=== PATIENT | female | born 1965 | race Caucasian/White ===

== ENCOUNTER 2017-05-20 06:10 | Emergency (ER) | payer MEDICAID, OTHER ==
--- NOTE | 2017-05-20 06:36 | Emergency Department Record ---
History of Present Illness - General Chief Complaint: Headache Migraine Stated Complaint: HEADACHE Time Seen by Provider: 05/20/17 06:22 Source: Patient Mode of Arrival: Ambulatory Limitations: No limitations - History of Present Illness Initial Comments: The patient is here due to a headache that has been getting worse for a few hours. The patient has a long hx of chronic NUNEZ's similar to this one and has had a frontal NUNEZ for 5-6 days. She did see her PCP yesterday and did receive some medicine that almost completely took the NUNEZ away. Now for the last few hours the NUNEZ is returning. She describes a frontal throbbing NUNEZ which is gradually worsening and is associated with nausea, photophobia, and sound sensitivity. She denies any vomiting, weakness, numbness or balance issues. The patient states she has a long hx of these exact same NUNEZ's and she is usually able to take care of them at home but this one is lingering. Complaint: Headache Onset/Timin -: Hour(s) Onset Description: At rest Location: Frontal Severity scale (1-10): 10 Consistency: Constant Associated Symptoms: Nausea, Photophobia, Sensitivity to sound - Related Data Previous Rx's Medication Instructions Recorded Naproxen [Naprosyn] 250 mg PO BID #14 tablet 05/20/17 Allergies Allergy/AdvReac Type Severity Reaction Status Date / Time codeine AdvReac Mild NAUSEA Unverified 05/19/17 09:04 Travel Screening - Travel/Exposure Within Last 30 Days Have you traveled within the last 30 days?: No Review of Systems Constitutional: Denies: Chills, Fever Eyes: Denies: Eye discharge ENT: Denies: Congestion Respiratory: Denies: Cough, Dyspnea Past Medical History - SOCIAL HISTORY Smoking Status: Current every day smoker Alcohol Use: None Drug Use: None - RESPIRATORY Hx Respiratory Disorders: No - CARDIOVASCULAR Hx Cardio Disorders: Yes Hx Heart Attack: Yes - NEURO Hx Neuro Disorders: No - GI Hx GI Disorders: No - Hx Genitourinary Disorders: No - ENDOCRINE Hx Endocrine Disorders: Yes Hx Diabetes: Yes - MUSCULOSKELETAL Hx Musculoskeletal Disorders: No - PSYCH Hx Psych Problems: No - HEMATOLOGY/ONCOLOGY Hx Hematology/Oncology Disorders: No Family Medical History Any Significant Family History?: No Physical Exam - General General Appearance: Alert, Oriented x3, Cooperative, Mild distress (due to the NUNEZ.) - Head Head exam: Atraumatic, Normocephalic, Normal inspection (Palpation of the patient's fronal skull and denominational area bilaterally EXACTLY reproduces the patient's pain.) - Eye Eye exam: Normal appearance, PERRL, EOMI - ENT Throat exam: Normal inspection. negative: Tonsillar erythema, Tonsillar exudate - Neck Neck exam: Normal inspection, Full ROM. negative: Meningismus (The neck is very supple.), Tenderness - Respiratory Respiratory exam: Normal lung sounds bilaterally. negative: Respiratory distress - Cardiovascular Cardiovascular Exam: Regular rate - GI/Abdominal GI/Abdominal exam: Soft, Normal bowel sounds. negative: Tenderness - Extremities Extremities exam: Normal inspection, Full ROM, Normal capillary refill. negative: Tenderness - Neurological Neurological exam: Alert, Normal gait, Oriented X3, Reflexes normal, Other (Neg Drift and Rhomberg exams.). negative: Abnormal gait, Altered, Motor sensory deficit - Psychiatric Psychiatric exam: Anxious (mildly due to the NUNEZ.). negative: Agitated, Depressed - Skin Skin exam: negative: Rash Course Vital Signs 05/20/17 06:16 Temperature 98.4 F Pulse Rate [ 103 H Pulse Ox Probe] Respiratory 24 Rate Blood Pressure 164/91 [Right Arm] Pulse Ox 98 - Reevaluation(s) Reevaluation #1: The patient now is stating that she is having some mild SOB and her L arm is now aching. She denies any CP, or back pain and on exam her L arm pain is 100% reproducible with palpation from her shoulder to the elbow. We will obtain an EKG due to her hx of DM and tobacco use. 05/20/17 06:44 Reevaluation #2: The patient is feeling better at this time. Her NUNEZ is now 75% improved. She is now calm and denies any CP, SOB, sweating or nausea. She still has the VERY reproducible L arm pain. She is resting comfortably and is much improved. 05/20/17 07:10 Reevaluation #3: The patient is doing MUCH better at this time. Her pain is 95% resolved and she is smiling and joking in the room. She feels much better and would like to go home. I did discuss with her the neg head CT and the need for F/U. 05/20/17 07:59 05/20/17 08:09 Medical Decision Making - Data Complexity MDM Data: Labs Ordered and/or Reviewed, X-Ray Ordered and/or Reviewed, EKG Ordered and/or Reviewed - Lab Data Result diagrams: 05/20/17 06:35 05/20/17 06:35 - EKG Data -: EKG Interpreted by Me EKG: No Acute Changes, Unchanged From Previous - Radiology Data Radiology results: Report reviewed (Head CT: Neg.) Disposition Disposition: Discharge Clinical Impression: Headache Qualifiers: Headache type: unspecified Headache chronicity pattern: acute headache Intractability: not intractable Qualified Code(s): R51 - Headache Disposition: Home, Self-Care Condition: (1) Good Instructions: Acute Headache (ED) Additional Instructions: Please take the naprosyn for pain. Please see your PCP in 2 weeks as planned and return to the ER for any problems. Prescriptions: Naproxen [Naprosyn] 250 mg PO BID #14 tablet Forms: Patient Portal Access Time of Disposition: 08:11 Quality - Quality Measures Quality Measures: N/A - Blood Pressure Screening View Details: Yes Blood Pressure Classification: Hypertensive Reading Systolic Measurement: 140 Diastolic Measurement: 94 Screening for High Blood Pressure: < Pre-Hypertensive BP, F/U Documented > [ G8950] Pre-Hypertensive Follow-up Interventions: Follow-up with rescreen every year.
[2017-05-20 06:42] LABS: BASO % 0.1 % (0-6); EOS % 0.6 % (0-6); GRAN % 71.5 % (47-80); HEMATOCRIT 46.3 % (35.0-47.0); HEMOGLOBIN 16.2 gm/dl (11.6-16.0); LYMPH % 21.2 % (16-45); MEAN CELL VOLUME 89.4 fl (81-97); MEAN PLATELET VOLUME 9.3 fl (7.4-10.4); MONO % 6.6 % (0-9); PLATELET COUNT 314 K/uL (130-400); RED BLOOD COUNT 5.18 M/uL (3.80-5.40); RED CELL DISTRIBUTION WIDTH 14.4 % (11.5-14.5); WHITE BLOOD COUNT W/O DIFF 16.6 K/uL (4.2-12.2)
[2017-05-20 06:43] LABS: MEAN CORPUSCULAR HEMOGLOBIN 31.2 pg (27-33)
[2017-05-20] MEDS: METOCLOPRAMIDE HCL 10 MG/2 ML VIAL IVP ONE (06:43)
[2017-05-20] MEDS: KETOROLAC 30 MG/ML VIAL IVP ONE (06:43)
[2017-05-20] MEDS: DIPHENHYDRAMINE HCL IV 50 MG/ML VIAL IVP ONE (06:43)
[2017-05-20] MEDS: 0.9 % SODIUM CHLORIDE 1,000 ML BAG IV ONE (06:43)
[2017-05-20 06:55] LABS: ALB/GLOB RATIO 1.6 (1.1-1.8); ALBUMIN 4.7 gm/dL (3.5-5.0); ALKALINE PHOSPHATASE 76 U/L (38-126); ALT/SGPT 62 U/L (9-52); ANION GAP 12.2 (7-16); AST/SGOT 32 U/L (14-36); BILIRUBIN,TOTAL 1.21 mg/dL (0.2-1.3); BLOOD UREA NITROGEN 19 mg/dL (7-17); CARBON DIOXIDE 20.8 mmol/L (22-30); CREATININE 0.9 mg/dL (0.52-1.04); EST GLOMERULAR FILTRATION RATE > 60 ml/min; GLUCOSE,RANDOM 181 mg/dL (70-110); TOTAL PROTEIN 7.6 gm/dL (6.3-8.2)
[2017-05-20] MEDS: ACETAMINOPHEN 325 MG TAB PO ONE (07:52)
--- NOTE | 2017-05-20 10:22 | CT SCAN REPORT ---
EXAM: CT OF THE HEAD WITHOUT CONTRAST HISTORY: HEADACHES WITH NAUSEA AND PHOTOPHOBIA FOR FIVE TO SIX DAYS. TECHNIQUE: Routine noncontrast CT examination of the head was performed. Comparison: None. FINDINGS: The ventricles and subarachnoid spaces are normal in size. No area of abnormally increased or decreased attenuation is noted throughout the brain substance. No abnormal extraaxial fluid collection is seen. There is minimal atherosclerotic calcification of the cavernous right internal carotid artery. The visualized paranasal sinuses and mastoid air cells are clear. The orbits as visualized are unremarkable. IMPRESSION: NO CT EVIDENCE OF AN ACUTE INTRACRANIAL ABNORMALITY. JOB NUMBER: [id number] [facility]
== END 2017-05-20 08:22 | disposition home or self-care (01) ==
LOC: ER 06:10
DX: R51 Headache (principal); R11.0 Nausea; H53.149 Visual discomfort, unspecified; I25.2 Old myocardial infarction; F17.210 Nicotine dependence, cigarettes, uncomplicated
CPT/HCPCS: 70450; 80053; 85025; 93005; 93010; 96374; 96375; 99284; J1200; J1885; J2765; J7030

== ENCOUNTER 2018-05-06 09:38 | Emergency (ER) | payer OTHER ==
--- NOTE | 2018-05-06 10:03 | Emergency Department Record ---
History of Present Illness - General Chief complaint: Bite Insect/other Stated complaint: TICK BITE Time Seen by Provider: 05/06/18 09:53 Source: Patient Mode of Arrival: Ambulatory Limitations: No limitations - History of Present Illness Initial comments: The patient pulled a tick of of her L proximal medial arm 2 weeks ago. She is not sure how long it was on. Now she has developed a rash at the site for the last 10-12 days. The rash is mildly pruritic. The patient is concerned she has Lyme Dz. She denies any other rashes, NUNEZ, facial weakness, chest pain or any joint pains. MD complaint: Rash Onset/Timin -: Days(s) - Related Data Previous Rx's Medication Instructions Recorded Doxycycline Monohydrate [Mondoxyne 100 mg PO BID #28 capsule 05/06/18 Nl] Allergies Allergy/AdvReac Type Severity Reaction Status Date / Time codeine AdvReac Mild NAUSEA Unverified 05/06/18 09:43 Travel Screening - Travel/Exposure Within Last 30 Days Have you traveled within the last 30 days?: No - Travel/Exposure Within Last Year Have you traveled outside the [place] in the last year?: No - Additonal Travel Details Have you been exposed to anyone with a communicable illness?: No Review of Systems Constitutional: Denies: Chills, Fever Eyes: Denies: Eye discharge ENT: Denies: Congestion Respiratory: Denies: Cough, Dyspnea Past Medical History - SOCIAL HISTORY Smoking Status: Current every day smoker Alcohol Use: None Drug Use: None - RESPIRATORY Hx Respiratory Disorders: No Hx COPD: Yes - CARDIOVASCULAR Hx Cardio Disorders: Yes Hx Heart Attack: Yes - NEURO Hx Neuro Disorders: No - GI Hx GI Disorders: No - Hx Genitourinary Disorders: No - ENDOCRINE Hx Endocrine Disorders: Yes Hx Diabetes: Yes - MUSCULOSKELETAL Hx Musculoskeletal Disorders: No - PSYCH Hx Psych Problems: No - HEMATOLOGY/ONCOLOGY Hx Hematology/Oncology Disorders: No Family Medical History Any Significant Family History?: No Physical Exam - General General Appearance: Alert, Oriented x3, Cooperative, No acute distress - Head Head exam: Atraumatic, Normocephalic, Normal inspection - Eye Eye exam: Normal appearance, PERRL, EOMI - ENT Throat exam: Normal inspection. negative: Tonsillar erythema, Tonsillar exudate - Neck Neck exam: Normal inspection, Full ROM. negative: Tenderness - Respiratory Respiratory exam: Normal lung sounds bilaterally. negative: Respiratory distress - Cardiovascular Cardiovascular Exam: Regular rate, Normal rhythm, Normal heart sounds - Extremities Extremities exam: Full ROM. negative: Normal inspection (There is a 4 cm erythematous papular rash to the L proximal medial arm. It is not a bulls eye rash at this time but is at the site of the bite. The L arm is NVI.), Tenderness Course Vital Signs 05/06/18 05/06/18 09:48 09:54 Temperature 97.8 F Pulse Rate 76 Respiratory 16 Rate Blood Pressure 141/99 Pulse Ox 95 - Reevaluation(s) Reevaluation #1: I did discuss the issues with the patient and did recommend treatment for presumed Lyme Dz. She is to F/u with her PCP for recheck in 2-4 weeks. 05/06/18 10:00 Disposition Disposition: Discharge Clinical Impression: Tick bite Qualifiers: Encounter type: initial encounter Qualified Code(s): W57.XXXA - Bitten or stung by nonvenomous insect and other nonvenomous arthropods, initial encounter Disposition: Home, Self-Care Condition: (2) Stable Instructions: Insect Bite or Sting (ED) Additional Instructions: Please use OTC HC cream to the site twice a day for 2 weeks and also take the Doxycycline. Please see your family doctor in 2-4 weeks for recheck and possible further testing for Lyme Dz. Return to the ER for any problems. Prescriptions: Doxycycline Monohydrate [Mondoxyne Nl] 100 mg PO BID #28 capsule Forms: Patient Portal Access Time of Disposition: 10:03 Quality - Quality Measures Quality Measures: N/A - Blood Pressure Screening View Details: Yes Does Patient Have Any of the Following: No Blood Pressure Classification: Hypertensive Reading Systolic Measurement: 141 Diastolic Measurement: 99 Screening for High Blood Pressure: < First Hypertensive BP, F/U Documented > [ G8950] First Hypertensive Follow-up Interventions: Referral to alternative/primary care provider.
== END 2018-05-06 10:10 | disposition home or self-care (01) ==
LOC: ER 09:38
DX: S40.862A Insect bite (nonvenomous) of left upper arm, initial encounter (principal); J44.9 Chronic obstructive pulmonary disease, unspecified; F17.210 Nicotine dependence, cigarettes, uncomplicated; I25.2 Old myocardial infarction; W57.XXXA Bitten or stung by nonvenomous insect and other nonvenomous arthropods, initial encounter
CPT/HCPCS: 99282

== ENCOUNTER 2018-08-05 01:07 | Emergency (ER) | payer OTHER ==
--- NOTE | 2018-08-05 01:18 | Emergency Department Record ---
History of Present Illness - General Chief Complaint: Shortness of breath Stated Complaint: DIFFICULTY BREATHING Time Seen by Provider: 08/05/18 01:17 Source: Patient Mode of Arrival: Ambulatory Limitations: No limitations - History of Present Illness Initial Comments: 53 yo female presents to ED for evaluation of wheezing, coughing, and difficulty in breathing symptoms that began 48 hours. Patient reports history of COPD, reports that she no longer has a nebulizer or albuterol at home. Patient denies fevers/chills, but reports cough and congestion symptoms. Patient denies health problems at her baseline. MD Complaint: Shortness of breath Onset/Timin -: Hour(s) Severity: Moderate Consistency: Constant Improves With: Rest Worsens With: Exertion Known History Of: COPD Context: Recent URI Associated Symptoms: Denies other symptoms Treatments Prior to Arrival: None - Related Data Home Oxygen Therapy: No Previous Rx's Medication Instructions Recorded Doxycycline Hyclate 100 mg PO BID #18 tab.dr 08/05/18 Prednisone [Prednisone 20Mg] 20 mg PO TID #12 tab 08/05/18 Allergies Allergy/AdvReac Type Severity Reaction Status Date / Time codeine AdvReac Mild NAUSEA Unverified 05/06/18 09:43 Review of Systems Constitutional: Denies: Chills, Fever, Malaise, Night sweats Eyes: Denies: Eye discharge, Eye pain ENT: Denies: Congestion, Ear pain, Epistaxis Respiratory: Reports: Cough, Dyspnea, Wheezes Cardiovascular: Reports: Dyspnea on exertion. Denies: Chest pain, Edema Endocrine: Denies: Fatigue, Heat or cold intolerance Gastrointestinal: Denies: Abdominal pain, Nausea, Vomiting Genitourinary: Denies: Incontinence, Retention Musculoskeletal: Denies: Arthralgia, Back pain Skin: Denies: Bruising, Change in color Neurological: Denies: Abnormal gait, Confusion, Headache, Seizure Psychiatric: Denies: Anxiety Hematological/Lymphatic: Denies: Anemia, Blood Clots Past Medical History - SOCIAL HISTORY Smoking Status: Current every day smoker Drug Use: None - RESPIRATORY Hx Respiratory Disorders: No Hx COPD: Yes - CARDIOVASCULAR Hx Cardio Disorders: Yes Hx Heart Attack: Yes - NEURO Hx Neuro Disorders: No - GI Hx GI Disorders: No - Hx Genitourinary Disorders: No - ENDOCRINE Hx Endocrine Disorders: Yes Hx Diabetes: Yes - MUSCULOSKELETAL Hx Musculoskeletal Disorders: No - PSYCH Hx Psych Problems: No - HEMATOLOGY/ONCOLOGY Hx Hematology/Oncology Disorders: No Physical Exam - General General Appearance: Alert, Oriented x3, Cooperative, Moderate distress Limitations: No limitations - Head Head exam: Atraumatic, Normocephalic, Normal inspection Head exam detail: negative: Abrasion, Contusion, Tavera's sign, General tenderness, Hematoma, Laceration - Eye Eye exam: Normal appearance. negative: Conjunctival injection, Periorbital swelling, Periorbital tenderness, Scleral icterus - ENT Ear exam: negative: Auricular hematoma, Auricular trauma Nasal Exam: negative: Active bleeding, Discharge, Dried blood, Foreign body Mouth exam: negative: Drooling, Laceration, Muffled voice, Tongue elevation - Neck Neck exam: Normal inspection. negative: Meningismus, Tenderness - Respiratory Respiratory exam: Decreased breath sounds, Wheezes. negative: Rales, Respiratory distress, Rhonchi, Stridor - Cardiovascular Cardiovascular Exam: Regular rate, Normal rhythm, Normal heart sounds - GI/Abdominal GI/Abdominal exam: Soft. negative: Rebound, Rigid, Tenderness - Rectal Rectal exam: Deferred - exam: Deferred - Extremities Extremities exam: Normal inspection. negative: Calf tenderness, Pedal edema, Tenderness - Back Back exam: Denies: CVA tenderness (R), CVA tenderness (L) - Neurological Neurological exam: Alert, Normal gait, Oriented X3 - Psychiatric Psychiatric exam: Normal affect, Normal mood - Skin Skin exam: Normal color. negative: Abrasion Type of lesion: negative: abrasion Course - Reevaluation(s) Reevaluation #1: 08/05/18 01:17 EKG: NSR 63 Normal axis, normal intervals No acute ST-T wave changes present. Reevaluation #2: 08/05/18 02:05 CXR: Hyperinflation, no acute process Patient was reassessed and reports that her breathing is MUCH improved. Patient's symptoms appear c/w COPD exacerbation/Bronchitis, will treat with Albuterol, Prednisone, and Doxycycline as directed. Patient agrees with the plan of care as discussed and appears stable for discharge. Disposition Disposition: Discharge Clinical Impression: COPD exacerbation Disposition: Home, Self-Care Condition: (2) Stable Instructions: COPD (Chronic Obstructive Pulmonary Disease) (ED) Additional Instructions: Return to ED if your symptoms worsen or if you have any concerns. Prednisone, Doxycycline, and Albuterol as directed. Follow-up with your family doctor in 1-3 days as directed. Prescriptions: Doxycycline Hyclate 100 mg PO BID #18 tab. Prednisone [Prednisone 20Mg] 20 mg PO TID #12 tab Forms: Patient Portal Access Time of Disposition: 02:09 Quality - Quality Measures Quality Measures: N/A - Blood Pressure Screening Does Patient Have Any of the Following: No Blood Pressure Classification: Pre-Hypertensive BP Reading Systolic Measurement: 161 Diastolic Measurement: 83 Screening for High Blood Pressure: < Pre-Hypertensive BP, F/U Documented > [ G8950] Pre-Hypertensive Follow-up Interventions: Referral to alternative/primary care provider.
[2018-08-05] MEDS ORDERED: IPRATROPIUM/ALBUTEROL (0.5MG/3MG) NEB INH ONE (01:21)
[2018-08-05] MEDS ORDERED: PREDNISONE 20 MG TAB PO ONE (01:21)
[2018-08-05] MEDS ORDERED: DOXYCYCLINE HYCLATE 100 MG CAPSULE PO ONE (02:04)
[2018-08-05] MEDS ORDERED: ALBUTEROL HFA 8 GM INHALER INH SCH (06:00)
--- NOTE | 2018-08-07 15:05 | RADIOLOGY REPORT ---
EXAM: CHEST, TWO VIEWS HISTORY: PATIENT HAS COUGH AND WHEEZING. TECHNIQUE: Two views of the chest are provided along with the comparison study dated 01/18/11. FINDINGS: The cardiomediastinal silhouette is within normal limits for size and contour. The cesar appear unremarkable. There is no radiographic evidence of a focal infiltrate or pleural effusion. Emphysematous changes are identified bilaterally. IMPRESSION: STABLE EMPHYSEMATOUS CHANGES OF THE BILATERAL LUNG ISLAS WITHOUT RADIOGRAPHIC EVIDENCE OF A NEW FOCAL INFILTRATE, PLEURAL EFFUSION, OR PNEUMOTHORAX. JOB [facility]BER: [id number] [facility]
== END 2018-08-05 02:25 | disposition home or self-care (01) ==
LOC: ER 01:07
DX: J44.1 Chronic obstructive pulmonary disease with (acute) exacerbation (principal); R06.02 Shortness of breath; F17.210 Nicotine dependence, cigarettes, uncomplicated; I25.2 Old myocardial infarction
CPT/HCPCS: 99284 ×2; 71046; 94640; 94664; 93005; 93010; J7512

== ENCOUNTER 2019-01-08 08:44 | Emergency (ER) | payer OTHER ==
[2019-01-08] MEDS ORDERED: IPRATROPIUM/ALBUTEROL (0.5MG/3MG) NEB INH ONE (08:51)
[2019-01-08] MEDS ORDERED: ALBUTEROL SULFATE (0.083%) 2.5 MG/3 ML NEB INH ONE ×2 (09:19→10:02)
[2019-01-08] MEDS ORDERED: METHYLPREDNISOLONE PF 125MG/VIAL IVP ONE (09:19)
--- NOTE | 2019-01-08 09:23 | Emergency Department Record ---
History of Present Illness - General Chief Complaint: Shortness of breath Stated Complaint: ANTONIO Time Seen by Provider: 01/08/19 08:54 Source: Patient Mode of Arrival: Ambulatory Limitations: No limitations - History of Present Illness Initial Comments: The patient is here due to a 3 day hx of cough, congestion, sputum production and SOB. She denies any fever but is having anterior Cp ONLY when coughing. The patient also denies any pleuritic pain, back pain, vomiting, or diarrhea. She does have a hx of COPD and is still smoking. MD Complaint: Cough, Shortness of breath Onset/Timin -: Days(s) Severity scale (1-10): 7 Quality: Aching Consistency: Constant Improves With: Upright position Worsens With: Coughing, Exertion, Lying flat Known History Of: COPD Associated Symptoms: Cough, Sputum production Treatments Prior to Arrival: Bronchodilator Treatment Prior to Arrival Comment:: Proair inhaler - Related Data Home Oxygen Therapy: No Previous Rx's Medication Instructions Recorded Albuterol Sulfate [Proair Hfa] 2 puff IH QID PRN #1 inhaler 01/08/19 Levofloxacin [Levaquin] 750 mg PO DAILY #4 tab 01/08/19 Prednisone [Prednisone 20Mg] 40 mg PO DAILY #8 tab 01/08/19 Allergies Allergy/AdvReac Type Severity Reaction Status Date / Time codeine AdvReac Unknown NAUSEA Unverified 01/08/19 08:53 Travel Screening - Travel/Exposure Within Last 30 Days Have you traveled within the last 30 days?: No Review of Systems Constitutional: Reports: Malaise. Denies: Chills, Fever Eyes: Denies: Eye discharge ENT: Reports: Congestion Respiratory: Reports: Cough, Dyspnea. Denies: Hemoptysis Cardiovascular: Denies: Arrhythmia Endocrine: Reports: Fatigue Gastrointestinal: Denies: Nausea Genitourinary: Denies: Dysuria Musculoskeletal: Denies: Arthralgia Skin: Denies: Bruising Past Medical History - SOCIAL HISTORY Smoking Status: Current every day smoker Alcohol Use: None Drug Use: None - RESPIRATORY Hx Respiratory Disorders: Yes Hx COPD: Yes - CARDIOVASCULAR Hx Cardio Disorders: Yes Hx Heart Attack: No - NEURO Hx Neuro Disorders: No - GI Hx GI Disorders: No - Hx Genitourinary Disorders: No - ENDOCRINE Hx Endocrine Disorders: Yes Hx Diabetes: Yes - MUSCULOSKELETAL Hx Musculoskeletal Disorders: No - PSYCH Hx Psych Problems: No - HEMATOLOGY/ONCOLOGY Hx Hematology/Oncology Disorders: No Family Medical History Any Significant Family History?: No Physical Exam - General General Appearance: Alert, Oriented x3, Cooperative, No acute distress - Head Head exam: Atraumatic, Normocephalic, Normal inspection - Eye Eye exam: Normal appearance, PERRL, EOMI - ENT Throat exam: Normal inspection. negative: Tonsillar erythema, Tonsillar exudate - Neck Neck exam: Normal inspection, Full ROM. negative: Tenderness - Respiratory Respiratory exam: Normal lung sounds bilaterally. negative: Chest wall tenderness, Rales, Respiratory distress, Rhonchi, Stridor, Wheezes - Cardiovascular Cardiovascular Exam: Regular rate, Normal rhythm, Normal heart sounds - GI/Abdominal GI/Abdominal exam: Soft, Normal bowel sounds. negative: Tenderness - Extremities Extremities exam: Normal inspection, Full ROM, Normal capillary refill. negative: Tenderness - Neurological Neurological exam: Alert. negative: Motor sensory deficit Course Vital Signs 01/08/19 01/08/19 01/08/19 08:45 08:55 09:10 Temperature 98.6 F Pulse Rate 77 78 Respiratory 20 18 Rate Blood Pressure 152/79 Pulse Ox 96 96 - Reevaluation(s) Reevaluation #1: The patient is doing better at this time and is speaking in full sentences. She denies any CP unless she is coughing and states her SOB is improved. The patient 's RA biox does drop to the high 80's at times but then does improve to the 95% range. On exam her lungs are improved but she is having rhonchi at the bases. Due to the intermittent oxygen requirement I did recommend hospital admission for oxygen therapy and inhaller treatments and Abx's. The patient is refusing that plan and would like to go home. I did explain to her that the risks of leaving are that she could go home and develop a worsening infection, and SOB which could lead to respiratory failure and . The patient understands and accepts the risks and understands we cannot be held liable for NOT admitting her here to [facility] for further treatment. 01/08/19 10:35 Medical Decision Making - Data Complexity MDM Data: Labs Ordered and/or Reviewed, X-Ray Ordered and/or Reviewed, EKG Ordered and/or Reviewed - Lab Data Result diagrams: 01/08/19 08:45 01/08/19 08:45 - EKG Data -: EKG Interpreted by Me EKG: No Acute Changes, Normal EKG - Radiology Data Radiology results: Report reviewed (CXR: COPD with a R basilar infiltrate with a possible early very mild L base infiltrate.) Disposition Disposition: Discharge Clinical Impression: Pneumonia Qualifiers: Pneumonia type: due to unspecified organism Laterality: unspecified laterality Lung location: unspecified part of lung Qualified Code(s): J18.9 - Pneumonia, unspecified organism Disposition: Against Medical Advice Condition: (2) Stable Instructions: Dyspnea (ED) Additional Instructions: Please continue the inhaller use and continue the Levaquin and Prednisone as directed. Please see your family doctor for recheck later this week and return to the ER for any worsening symptoms. Prescriptions: Albuterol Sulfate [Proair Hfa] 2 puff IH QID PRN #1 inhaler PRN Reason: Cough And Difficulty Breathing Levofloxacin [Levaquin] 750 mg PO DAILY #4 tab Prednisone [Prednisone 20Mg] 40 mg PO DAILY #8 tab Forms: Patient Portal Access Time of Disposition: 10:48 Quality - Quality Measures Quality Measures: N/A - Blood Pressure Screening View Details: Yes Does Patient Have Any of the Following: No Blood Pressure Classification: Pre-Hypertensive BP Reading Systolic Measurement: 124 Diastolic Measurement: 60 Screening for High Blood Pressure: < Pre-Hypertensive BP, F/U Documented > [ G8950] Pre-Hypertensive Follow-up Interventions: Referral to alternative/primary care provider.
[2019-01-08 09:28] LABS: BASO % 0.2 % (0-6); EOS % 1.2 % (0-6); GRAN % 60.6 % (47-80); HEMATOCRIT 43.7 % (35.0-47.0); HEMOGLOBIN 14.7 gm/dl (11.6-16.0); LYMPH % 26.6 % (16-45); MEAN CELL VOLUME 90.1 fl (81-97); MEAN CORPUSCULAR HEMOGLOBIN 30.3 pg (27-33); MEAN CORPUSCULAR HGB CONC 33.6 g/dl (32-36); MEAN PLATELET VOLUME 9.3 fl (7.4-10.4); MONO % 11.4 % (0-9); PLATELET COUNT 337 K/uL (130-400); RED BLOOD COUNT 4.85 M/uL (3.80-5.40); RED CELL DISTRIBUTION WIDTH 14.4 % (11.5-14.5); WHITE BLOOD COUNT W/O DIFF 8.3 K/uL (4.2-12.2)
[2019-01-08 09:36] LABS: BLOOD UREA NITROGEN 11 mg/dL (6-20); CREATININE 0.6 mg/dL (0.5-0.9); EST GLOMERULAR FILTRATION RATE > 60 mL/min
[2019-01-08 09:37] LABS: TOTAL PROTEIN 7.3 g/dL (6.6-8.7)
[2019-01-08 09:39] LABS: GLUCOSE,RANDOM 142 mg/dL (74-109)
[2019-01-08 09:42] LABS: ALB/GLOB RATIO 1.5 (1.1-1.8); ALBUMIN 4.4 g/dL (4.0-5.0); ALKALINE PHOSPHATASE 68 U/L (35-104); ALT/SGPT 19 U/L (<33); AST/SGOT 16 U/L (10.0-35.0)
[2019-01-08] MEDS ORDERED: LEVOFLOXACIN 500 MG TABLET PO ONE (10:28)
--- NOTE | 2019-01-09 08:33 | RADIOLOGY REPORT ---
EXAM: CHEST, TWO VIEWS HISTORY: COUGH, CONGESTION, SHORTNESS OF BREATH. TECHNIQUE: Two views of the chest were obtained. Comparison: Chest radiograph 08/05/18. FINDINGS: The cardiac silhouette is within normal limits. In the right lung base, there is patchy consolidation. There is also minimal opacity in the left lung base. Possible trace right pleural fluid collection. No visible pneumothorax. The lungs are hyperinflated. IMPRESSION: 1. IN THE RIGHT LUNG BASE THERE IS CONSOLIDATION SUSPICIOUS FOR PNEUMONIA. MINIMAL LEFT BASILAR OPACITY COULD REPRESENT MILD AIR SPACE DISEASE VERSUS ATELECTASIS. 2. POSSIBLE TRACE RIGHT PLEURAL EFFUSION. 3. PULMONARY HYPERINFLATION, MAY BE SEEN WITH COPD. J[facility]BER: [id number] [facility]
== END 2019-01-08 11:06 | disposition left against medical advice (07) ==
LOC: ER 08:44
DX: J18.9 Pneumonia, unspecified organism (principal); R06.02 Shortness of breath; R10.9 Unspecified abdominal pain; J44.9 Chronic obstructive pulmonary disease, unspecified; E11.9 Type 2 diabetes mellitus without complications; F17.210 Nicotine dependence, cigarettes, uncomplicated
CPT/HCPCS: 71046; 71275; 74177; 80048; 80053; 80076; 81003; 83690; 84484; 85025; 85027; 93005; 93010; 94640; 96365; 96374; 96375; 99284; J1885; J2930; J7030; J7613

== ENCOUNTER 2019-01-08 15:07 | Emergency (ER) | payer OTHER ==
[2019-01-08] MEDS ORDERED: KETOROLAC 30 MG/ML VIAL IVP ONE (15:23)
[2019-01-08] MEDS ORDERED: 0.9 % SODIUM CHLORIDE 1,000 ML BAG IV ONE (15:31)
--- NOTE | 2019-01-08 15:38 | Emergency Department Record ---
History of Present Illness - General Chief complaint: Pain Stated complaint: RT SIDE PAIN Time Seen by Provider: 01/08/19 15:15 Source: Patient Mode of Arrival: Wheelchair Limitations: No limitations - History of Present Illness Initial comments: The patient is here due to the acute onset of R sided chest and abdomen pain for the last hour. She was in the ER this AM due to pneumonia and COPD and left AMA. The patient then states she went home and went to sleep and woke up an hour ago with this severe pain and SOB. There has been no L sided Cp, fever, chills, but the patient is still coughing. MD Complaint: Other Onset/Timin -: Hour(s) Location: Right, Other Severity scale (1-10): 10 Quality: Sharp Consistency: Constant Improves with: Nothing Worsens with: Nothing Associated Symptoms: Denies other symptoms - Related Data Previous Rx's Medication Instructions Recorded Albuterol Sulfate [Proair Hfa] 2 puff IH QID PRN #1 inhaler 01/08/19 Levofloxacin [Levaquin] 750 mg PO DAILY #4 tab 01/08/19 Prednisone [Prednisone 20Mg] 40 mg PO DAILY #8 tab 01/08/19 Allergies Allergy/AdvReac Type Severity Reaction Status Date / Time codeine AdvReac Unknown NAUSEA Unverified 01/08/19 08:53 Travel Screening - Travel/Exposure Within Last 30 Days Have you traveled within the last 30 days?: No Review of Systems Constitutional: Reports: Malaise. Denies: Chills, Fever Eyes: Denies: Eye discharge ENT: Reports: Congestion Respiratory: Reports: Cough, Dyspnea. Denies: Hemoptysis Cardiovascular: Reports: Chest pain (R sided only.). Denies: Arrhythmia Endocrine: Reports: Fatigue Gastrointestinal: Denies: Nausea Genitourinary: Denies: Dysuria Musculoskeletal: Denies: Arthralgia Skin: Denies: Bruising Past Medical History - SOCIAL HISTORY Smoking Status: Current every day smoker Alcohol Use: None Drug Use: None - RESPIRATORY Hx Respiratory Disorders: Yes Hx COPD: Yes - CARDIOVASCULAR Hx Cardio Disorders: Yes Hx Heart Attack: No - NEURO Hx Neuro Disorders: No - GI Hx GI Disorders: No - Hx Genitourinary Disorders: No - ENDOCRINE Hx Endocrine Disorders: Yes Hx Diabetes: Yes - MUSCULOSKELETAL Hx Musculoskeletal Disorders: No - PSYCH Hx Psych Problems: No - HEMATOLOGY/ONCOLOGY Hx Hematology/Oncology Disorders: No Family Medical History Any Significant Family History?: No Physical Exam - General General Appearance: Alert, Oriented x3, Cooperative, Mild distress (The patient appears mildly uncomfortable and very anxious presently.) - Head Head exam: Atraumatic, Normocephalic - Eye Eye exam: Normal appearance, PERRL - ENT Throat exam: Normal inspection. negative: Tonsillar erythema, Tonsillar exudate - Neck Neck exam: Normal inspection, Full ROM. negative: Tenderness - Respiratory Respiratory exam: Normal lung sounds bilaterally. negative: Respiratory distress - Cardiovascular Cardiovascular Exam: Regular rate, Normal rhythm, Normal heart sounds. negative : Diastolic murmur, Systolic murmur - GI/Abdominal GI/Abdominal exam: Soft, Normal bowel sounds, Tenderness (There is diffuse R sided abdominal tenderness.) - Extremities Extremities exam: Normal inspection, Full ROM, Normal capillary refill. negative: Tenderness - Neurological Neurological exam: Alert, Normal gait, Oriented X3. negative: Abnormal gait, Altered, Motor sensory deficit Course Vital Signs 01/08/19 15:10 Temperature 97.6 F Pulse Rate 92 H Respiratory 20 Rate Blood Pressure 139/77 Pulse Ox 99 - Reevaluation(s) Reevaluation #1: The patient is doing a lot better at this time. She states her AP has resolved and she is drinking fluids well. I did discuss the lab and CT results and did recommend an overnight hospital admission and the patient is thinking about it. 01/08/19 17:23 Reevaluation #2: The patient is doing better at this time and states the pain that brought her back to the ER is now gone. She is still coughing and intermittently dyspneic so we AGAIN did recommend hospital admission for IV Abx's and respiratory treatments but the patient is refusing. I again did explain the risks of refusing which include going home and having an OH, respiratory failure, stroke , disability and and the patient again accepts the risks. She was told to see her PCP VALDEMAR and to return to the ER at any time for re-evaluation. 01/08/19 17:36 Medical Decision Making - Data Complexity MDM Data: Labs Ordered and/or Reviewed, X-Ray Ordered and/or Reviewed - Lab Data Result diagrams: 01/08/19 15:40 01/08/19 15:40 - Radiology Data Radiology results: Report reviewed (Chest CT: Neg for PE, R lower lobe infiltrate. Multiple nonspecific nodues, Rec repeat CT 6-[address]: neg for acute intra-abdominal pathology.) Disposition Disposition: Discharge Clinical Impression: Pneumonia Qualifiers: Pneumonia type: due to unspecified organism Laterality: unspecified laterality Lung location: unspecified part of lung Qualified Code(s): J18.9 - Pneumonia, unspecified organism Disposition: Against Medical Advice Condition: (2) Stable Instructions: Pneumonitis (ED) Additional Instructions: Please continue your home medicines and see your family doctor for recheck and to go over the official CT reports and to schedule the repeat chest CT later this year. Return to the ER for any worsening symptoms or problems. Forms: Patient Portal Access Time of Disposition: 17:40 Quality - Quality Measures Quality Measures: N/A - Blood Pressure Screening View Details: Yes Does Patient Have Any of the Following: No Blood Pressure Classification: Pre-Hypertensive BP Reading Systolic Measurement: 139 Diastolic Measurement: 77 Screening for High Blood Pressure: < Pre-Hypertensive BP, F/U Documented > [ G8950] Pre-Hypertensive Follow-up Interventions: Referral to alternative/primary care provider.
[2019-01-08 15:46] LABS: HEMATOCRIT 43.1 % (35.0-47.0); HEMOGLOBIN 14.6 gm/dl (11.6-16.0); MEAN CELL VOLUME 89.8 fl (81-97); MEAN CORPUSCULAR HEMOGLOBIN 30.4 pg (27-33); MEAN CORPUSCULAR HGB CONC 33.9 g/dl (32-36); MEAN PLATELET VOLUME 9.1 fl (7.4-10.4); PLATELET COUNT 333 K/uL (130-400); RED CELL DISTRIBUTION WIDTH 14.4 % (11.5-14.5)
[2019-01-08 15:54] LABS: PLATELET ESTIMATE NORMAL (NORMAL)
[2019-01-08 15:56] LABS: BLOOD UREA NITROGEN 13 mg/dL (6-20); CREATININE 0.8 mg/dL (0.5-0.9); EST GLOMERULAR FILTRATION RATE > 60 mL/min
[2019-01-08 15:57] LABS: LIPASE 18 U/L (13-60); TOTAL PROTEIN 7.5 g/dL (6.6-8.7)
[2019-01-08 15:59] LABS: GLUCOSE,RANDOM 227 mg/dL (74-109)
[2019-01-08 16:01] LABS: ALBUMIN 4.5 g/dL (4.0-5.0); ALKALINE PHOSPHATASE 70 U/L (35-104); ALT/SGPT 20 U/L (<33); AST/SGOT 17 U/L (10.0-35.0); BILIRUBIN,DIRECT < 0.2 mg/dL (0-0.3)
[2019-01-08] MEDS ORDERED: ACETAMINOPHEN 1,000 MG/100 ML BTL IVPB ONE (16:17)
[2019-01-08 17:18] LABS: URINE APPEARANCE CLEAR; URINE BILIRUBIN NEGATIVE (NEGATIVE); URINE BLOOD NEGATIVE (NEGATIVE); URINE COLOR YELLOW; URINE KETONE NEGATIVE (NEGATIVE); URINE LEUKOCYTE ESTERASE NEGATIVE (NEGATIVE); URINE NITRITE NEGATIVE (NEGATIVE); URINE PROTEIN NEGATIVE (NEGATIVE); URINE UROBILINOGEN 0.2 E.U./dL (0.20 - 1.00)
--- NOTE | 2019-01-10 14:20 | CT SCAN REPORT ---
EXAM: CT OF THE ABDOMEN AND PELVIS WITH CONTRAST HISTORY: SEVERE RIGHT CHEST AND ABDOMEN PAIN TODAY. DIFFICULTY IN BREATHING. KNOWN COPD. TECHNIQUE: CT of the abdomen and pelvis with contrast was performed in conjunction with same day CT angiogram of the chest with 95 ml of Omnipaque 350 utilized. Please see CTA chest report. No prior imaging of the abdomen and pelvis available for comparison. FINDINGS: Alveolar opacities are not4ed in the anterolateral right lower lobe suspicious for pneumonia. There is an indeterminate noncalcified nodule in the posterolateral right lower lobe as seen on series 3 image 2 measuring 4.3 mm in maximum diameter. A tiny noncalcified nodule measuring 2 mm is noted in the posterolateral left lower lobe on this same image. Minor linear scarring versus atelectasis versus atelectasis in the anterior lung bases. No pleural or pericardial effusion. The heart is not enlarged. A too small to characterize round hypodense lesion is noted in posterior segment of the mid to upper right liver lobe measuring 5 mm. No other definite focal hepatic lesion. The spleen, pancreas, adrenal glands, and right kidney are normal in appearance. There is a questionable too small to characterize hypodense lesion in the posterolateral upper left kidney measuring 5.4 mm. This is nonspecific, but likely a cyst. The left kidney is otherwise normal in appearance. There is a possible tiny gallstone at the level of the gallbladder fundus versus gallbladder wall calcification. The gallbladder is otherwise unremarkable and no biliary ductal dilatation is seen. No intraabdominal nor retroperitoneal lymphadenopathy. The portal vein and splenic vein are patent. There is mild to moderate diffuse atherosclerosis without aneurysmal dilatation of the abdominal aorta nor iliac arteries. The central mesenteric vasculature appears patent. No intraabdominal nor retroperitoneal lymphadenopathy. No suspicious pelvic mass nor lymphadenopathy. There is a questionable small soft tissue density mass arising exophytically from the left margin of the uterine fundus measuring 11 mm in diameter. This may represent a small fibroid. No intrinsic urinary bladder abnormality. No gross bowel dilatation nor bowel wall thickening though evaluation is limited by lack of oral contrast utilization. The appendix is not visualized with confidence. No inflammatory changes are, however, identified in its expected location. No lytic or blastic bone lesion. IMPRESSION: 1. NO CONVINCING CT EVIDENCE OF AN ACUTE INTRAABDOMINAL NOR INTRAPELVIC PROCESS. 2. POSSIBLE TINY GALLSTONE CONTIGUOUS WITH THE GALLBLADDER FUNDUS VERSUS GALLBLADDER WALL CALCIFICATION. NO EVIDENCE OF CHOLECYSTITIS. 3. TOO SMALL TO CHARACTERIZE ROUND HYPODENSITY WITHIN THE RIGHT LIVER LOBE IS NONSPECIFIC, BUT LIKELY A CYST OR HEMANGIOMA. NOT MENTIONED ABOVE IS A SMALL SOMEWHAT WEDGE SHAPED AREA OF RELATIVE HYPODENSITY ON PORTAL VENOUS PHASE IMAGES IN THE POSTERIOR INFERIOR ASPECT OF THE RIGHT LIVER LOBE MEASURING 10 X 7 MM. THIS IS NONSPECIFIC, BUT LIKELY AN AREA OF NORMAL VARIANT DIFFERENTIAL PERFUSION. 4. SINGLE TOO SMALL TO CHARACTERIZE HYPODENSE LESION IN THE LEFT KIDNEY IS NONSPECIFIC, BUT LIKELY A CYST. 5. QUESTIONABLE 11 MM SOLID MASS ARISING EXOPHYTICALLY FROM THE LEFT UTERINE FUNDUS. THIS IS NONSPECIFIC, BUT LIKELY A FIBROID. 6. RIGHT LOWER LOBE PNEUMONIA. SINGLE INDETERMINATE NONCALCIFIED NODULES WITHIN THE VISUALIZED LOWER LOBES. JOB NUMBER: [id number] [facility]
--- NOTE | 2019-01-10 14:34 | CT ANGIOGRAM REPORT ---
EXAM: CT ANGIOGRAM OF THE CHEST HISTORY: SEVERE RIGHT CHEST AND ABDOMINAL PAIN FOR ONE DAY. DIFFICULTY IN BREATHING. KNOWN COPD. TECHNIQUE: Routine CT angiogram of the chest was performed in conjunction with CT abdomen and pelvis with contrast. Pulmonary embolus protocol is utilized. 95 ml of Omnipaque 350 were used. Coronal and sagittal maximum intensity projection reformatted images are generated and reviewed. Comparison: No prior CT chest examination available for comparison. Same day two view chest radiographic examination. FINDINGS: Opacification of the pulmonary arteries is satisfactory for interpretation. No luminal filling defect is noted in the outflow tract, main arteries, lobar arteries, or proximal segmental arteries to suggest acute pulmonary embolic disease. The heart is not enlarged. The thoracic aorta is without aneurysmal dilatation nor dissection. The arch branch vessels appear patent with only minor atherosclerosis present. No mediastinal mass nor adenopathy. There is mild lymphoid tissue prominence within the inferior right hilum. No left hilar adenopathy. The central airways are clear. Bilateral centrilobular emphysema is present most pronounced in the upper lungs. As demonstrated on the same day radiographic examination, there are alveolar opacities in the anterolateral aspect of the right lower lobe suspicious for pneumonia. Tiny air bronchograms are patent. There is a 5.1 mm in diameter noncalcified nodule in the posterolateral right lower lobe as seen on series 4 image 75. Additionally, there is a somewhat triangular noncalcified nodular opacity in the posterolateral right lower lobe as seen on image 83 measuring 4.3 x 4.5 mm. A tiny pleural based nodule within the right middle lobe contiguous with the minor fissure measures 3 mm in diameter. There is a small nodule in the left lower lobe as seen on image 96 posteriorly. This measures 3 mm in maximum diameter. There is a 2 mm nodule in the subpleural posterolateral left lung base as seen on image 83. The lungs and pleural spaces are otherwise clear. No lytic or blastic bone lesion. 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 IMPRESSION: 1. NO CTA EVIDENCE OF ACUTE PULMONARY EMBOLIC DISEASE. 2. RIGHT LOWER LOBE PNEUMONIA WITH MILD ADENOPATHY IN THE INFERIOR RIGHT HILUM. 3. THERE ARE SEVERAL NONCALCIFIED BILATERAL LUNG NODULES, THE LARGEST OF WHICH MEASURES 5.1 MM IN DIAMETER. GIVEN HISTORY OF SMOKING, FOLLOW-UP CT CHEST EXAMINATION IN 9-12 MONTHS IS RECOMMENDED. 4. 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 5. BILATERAL EMPHYSEMA. JOB NUMBER: [id number] [facility]
== END 2019-01-08 17:50 | disposition left against medical advice (07) ==
LOC: ER 15:07
DX: J18.9 Pneumonia, unspecified organism (principal); R06.02 Shortness of breath; R10.9 Unspecified abdominal pain; J44.9 Chronic obstructive pulmonary disease, unspecified; E11.9 Type 2 diabetes mellitus without complications; F17.210 Nicotine dependence, cigarettes, uncomplicated
CPT/HCPCS: 71275; 74177; 80048; 80076; 81003; 83690; 85027; J1885; J7030

== ENCOUNTER 2019-05-27 08:03 | Emergency (ER) | payer OTHER ==
--- NOTE | 2019-05-27 08:35 | Emergency Department Record ---
History of Present Illness - General Chief Complaint: Back Pain/Injury Stated Complaint: back pain Time Seen by Provider: 05/27/19 08:29 Source: Patient, RN notes reviewed - History of Present Illness Initial Comments: back pain and this started 10 days ago and she is taking care of a 17 month old child. Primary care was Celia Boss and she is not going to any DrSunil aragon. Onset/Timin -: Days(s) Similar Symptoms Previously: Yes Place: Home Severity scale (1-10): 9 Quality: Burning Consistency: Constant Improves With: None Worsens With: Deep breaths/cough Context: Turning/twisting Treatments Prior to Arrival: NSAIDS Treatment Prior to Arrival Comment:: motrin last PM 2300 - Related Data Home Medications Medication Instructions Recorded Confirmed Last Taken Ibuprofen [Motrin] 800 mg PO ASDIR 05/27/19 05/27/19 05/27/19 Previous Rx's Medication Instructions Recorded Albuterol Sulfate [Proair Hfa] 1 - 2 puff IH .EVERY 4-6 HOURS PRN 05/27/19 #1 inhaler Cyclobenzaprine HCl [Flexeril] 10 mg PO TID #30 tablet 05/27/19 Naproxen [Naprosyn] 500 mg PO BID #20 tablet 05/27/19 Allergies Allergy/AdvReac Type Severity Reaction Status Date / Time codeine AdvReac Unknown NAUSEA Verified 05/27/19 08:09 Travel Screening - Travel/Exposure Within Last 30 Days Have you traveled within the last 30 days?: No - Travel/Exposure Within Last Year Have you traveled outside the [place] in the last year?: No - Additonal Travel Details Have you been exposed to anyone with a communicable illness?: No - Travel Symptoms Symptom Screening: None Review of Systems Reviewed: No additional complaints except as noted below Constitutional: Reports: As per HPI. Denies: Chills, Fever, Malaise, Night sweats, Weakness, Weight change Eyes: Reports: As per HPI. Denies: Eye discharge, Eye pain, Photophobia, Vision change ENT: Reports: As per HPI. Denies: Congestion, Dental pain, Ear pain, Epistaxis, Hearing loss, Throat pain Respiratory: Reports: As per HPI. Denies: Cough, Dyspnea, Hemoptysis, Stridor, Wheezes Cardiovascular: Reports: As per HPI. Denies: Arrhythmia, Chest pain, Dyspnea on exertion, Edema, Murmurs, Orthopnea, Palpitations, Paroxysmal nocturnal dyspnea, Rheumatic Fever, Syncope Endocrine: Reports: As per HPI. Denies: Fatigue, Heat or cold intolerance, Polydipsia, Polyuria Gastrointestinal: Reports: As per HPI. Denies: Abdominal pain, Constipation, Diarrhea, Hematemesis, Hematochezia, Melena, Nausea, Vomiting Genitourinary: Reports: As per HPI. Denies: Abnormal menses, Discharge, Dyspareunia, Dysuria, Frequency, Hematuria, Incontinence, Retention, Urgency Musculoskeletal: Reports: As per HPI. Denies: Arthralgia, Back pain, Gout, Joint swelling, Myalgia, Neck pain Skin: Reports: As per HPI. Denies: Bruising, Change in color, Change in hair/nails, Lesions, Pruritus, Rash Neurological: Reports: As per HPI. Denies: Abnormal gait, Confusion, Headache, Numbness, Paresthesias, Seizure, Tingling, Tremors, Vertigo, Weakness Psychiatric: Reports: As per HPI. Denies: Anxiety, Auditory hallucinations, Depression, Homicidal thoughts, Suicidal thoughts, Visual hallucinations Hematological/Lymphatic: Reports: As per HPI. Denies: Anemia, Blood Clots, Easy bleeding, Easy bruising, Swollen glands Past Medical History - SOCIAL HISTORY Smoking Status: Current every day smoker Alcohol Use: None Drug Use: None - RESPIRATORY Hx Respiratory Disorders: Yes Hx COPD: Yes - CARDIOVASCULAR Hx Cardio Disorders: Yes Hx Heart Attack: No - NEURO Hx Neuro Disorders: No - GI Hx GI Disorders: No - Hx Genitourinary Disorders: No - ENDOCRINE Hx Endocrine Disorders: Yes Hx Diabetes: Yes - MUSCULOSKELETAL Hx Musculoskeletal Disorders: No - PSYCH Hx Psych Problems: No - HEMATOLOGY/ONCOLOGY Hx Hematology/Oncology Disorders: No Family Medical History Any Significant Family History?: No Physical Exam - General General Appearance: Alert, Oriented x3, Cooperative, No acute distress - Head Head exam: Normal inspection - Eye Eye exam: Normal appearance, PERRL Pupils: Normal accommodation - ENT ENT exam: Normal exam, Mucous membranes moist, Normal external ear exam, Normal orophraynx, TM's normal bilaterally Ear exam: Normal external inspection. negative: External canal tenderness Nasal Exam: Normal inspection. negative: Discharge, Sinus tenderness Mouth exam: Normal external inspection, Tongue normal Teeth exam: Normal inspection. negative: Dental caries Throat exam: Normal inspection. negative: Tonsillar erythema, Tonsillar exudate - Neck Neck exam: Normal inspection, Full ROM. negative: Tenderness - Respiratory Respiratory exam: Normal lung sounds bilaterally. negative: Respiratory distress - Cardiovascular Cardiovascular Exam: Regular rate, Normal rhythm, Normal heart sounds - GI/Abdominal GI/Abdominal exam: Soft, Normal bowel sounds. negative: Tenderness - Rectal Rectal exam: Deferred - exam: Deferred - Extremities Extremities exam: Normal inspection, Full ROM, Normal capillary refill - Back Back exam: Reports: Normal inspection, Full ROM, Tenderness (low back pain and accually entire back pain.). Denies: Muscle spasm, Rash noted - Neurological Neurological exam: Alert, Normal gait, Oriented X3, Reflexes normal - Psychiatric Psychiatric exam: Normal affect, Normal mood - Skin Skin exam: Dry, Intact, Normal color, Warm Course Vital Signs 05/27/19 08:11 Temperature 97.7 F Pulse Rate 95 H Respiratory 20 Rate Blood Pressure 158/85 Pulse Ox 96 - Reevaluation(s) Reevaluation #1: 05/27/19 09:10 feeling better Reevaluation #2: mariana requested inhaler 05/27/19 09:10 Disposition Clinical Impression: Lumbar strain Qualifiers: Encounter type: initial encounter Qualified Code(s): S39.012A - Strain of musc le, fascia and tendon of lower back, initial encounter Disposition: Home, Self-Care Condition: (1) Good Instructions: Low Back Strain (ED) Additional Instructions: stop smoking cigs follow up with a family DR in one week. heat to back three times a day stop motrin start naprsoyn twice a day start flexeril three times a day Prescriptions: Cyclobenzaprine HCl [Flexeril] 10 mg PO TID #30 tablet Naproxen [Naprosyn] 500 mg PO BID #20 tablet Albuterol Sulfate [Proair Hfa] 1 - 2 puff IH .EVERY 4-6 HOURS PRN #1 inhaler PRN Reason: Difficulty In Breathing Forms: Patient Portal Access Time of Disposition: 08:59 Quality - Quality Measures Quality Measures: N/A - Blood Pressure Screening Does Patient Have Any of the Following: No Blood Pressure Classification: Pre-Hypertensive BP Reading Systolic Measurement: 158 Diastolic Measurement: 85 Screening for High Blood Pressure: < Pre-Hypertensive BP, F/U Documented > [G8950] Pre-Hypertensive Follow-up Interventions: Referral to alternative/primary care provider.
[2019-05-27] MEDS ORDERED: KETOROLAC 30 MG/ML VIAL IM ONE (08:46)
== END 2019-05-27 09:18 | disposition home or self-care (01) ==
LOC: ER 08:03
DX: S39.012A Strain of muscle, fascia and tendon of lower back, initial encounter (principal); X50.1XXA Overexertion from prolonged static or awkward postures, initial encounter; J44.9 Chronic obstructive pulmonary disease, unspecified; E11.9 Type 2 diabetes mellitus without complications; F17.210 Nicotine dependence, cigarettes, uncomplicated
CPT/HCPCS: 36416; 82948; 96372; 99284; J1885

== ENCOUNTER 2019-12-08 08:09 | Emergency (ER) | payer SELFPAY ==
[2019-12-08] MEDS ORDERED: ONDANSETRON HCL IV 4 MG/2 ML VIAL IVP ONE (08:16)
[2019-12-08] MEDS ORDERED: 0.9 % SODIUM CHLORIDE 1,000 ML BAG IV ONE (08:16)
[2019-12-08] MEDS ORDERED: ACETAMINOPHEN 1,000 MG/100 ML BTL IVPB ONE (08:16)
[2019-12-08] MEDS ORDERED: IPRATROPIUM/ALBUTEROL (0.5MG/3MG) NEB INH ONE (08:21)
--- NOTE | 2019-12-08 08:22 | Emergency Department Record ---
History of Present Illness - General Chief Complaint: Cough Stated Complaint: CHEST PAIN LEFT ARM PAIN ANTONIO Time Seen by Provider: 12/08/19 08:11 Source: Patient Mode of Arrival: Ambulatory Limitations: No limitations - History of Present Illness Initial Comments: 54 yo female presents not feeling well for 15 days. She initially developed cough, congestion, chills, fever with some clear sputum. She reports these symptoms have continued. She states she was exposed to her granddaughter who had nausea, vomiting, and diarrhea. She developed then nausea, vomiting, and diarrhea. No blood in the vomit or diarrhea. The vomiting is decreasing but she is having about 3 loose stools per day. No blood in the sputum. It hurts to cough. Her Tmax at home was 102 for about 2 days. The patient is a smoker. She has COPD. No known CAD. MD Complaint: Cough, Fever, Nasal congestion, Other (Nausea, vomiting, diarrhea, chest pain with cough) Onset/Timin -: Week(s) Severity: Moderate Quality: Aching Consistency: Constant Improves With: Nothing Worsens With: Other (coughing) Associated Symptoms: Chest pain, Chills, Cough, Diarrhea, Fever, Hoarseness, Nasal congestion, Nausea, Vomiting - Related Data Previous Rx's Medication Instructions Recorded Albuterol Sulfate [Proair Hfa] 1 - 2 puff IH .EVERY 4-6 HOURS PRN 05/27/19 #1 inhaler Albuterol Sulfate [Albuterol 8.5 gm IH Q4H PRN #1 hfa.aer.ad 12/08/19 Sulfate Hfa] Azithromycin [Zithromax] 250 mg PO DAILY #4 tablet 12/08/19 Ondansetron [Zofran Odt] 4 mg PO Q8H #15 tab.rapdis 12/08/19 Prednisone [Prednisone 20Mg] 20 mg PO BID #10 tab 12/08/19 Allergies Allergy/AdvReac Type Severity Reaction Status Date / Time codeine AdvReac Unknown NAUSEA Verified 12/08/19 08:19 Travel/Exposure Screening - Travel/Exposure Within Last 30 Days Have you traveled within the last 30 days?: No - Additonal Travel/Exposure Details Have you been exposed to anyone with a communicable illness?: No Review of Systems Constitutional: Reports: Chills, Fever, Malaise Eyes: Denies: Eye discharge ENT: Reports: Congestion, Throat pain. Denies: Ear pain Respiratory: Reports: Cough, Dyspnea, Wheezes. Denies: Hemoptysis Cardiovascular: Reports: Chest pain (with coughing). Denies: Edema, Palpitations, Syncope Endocrine: Reports: Fatigue. Denies: Polydipsia, Polyuria Gastrointestinal: Reports: Diarrhea, Nausea, Vomiting. Denies: Abdominal pain, Hematemesis Genitourinary: Denies: Dysuria, Urgency Musculoskeletal: Reports: Myalgia. Denies: Arthralgia, Joint swelling, Neck pain Skin: Denies: Bruising, Change in color, Rash Neurological: Denies: Headache Psychiatric: Denies: Anxiety Hematological/Lymphatic: Denies: Easy bleeding, Easy bruising, Swollen glands Past Medical History - SOCIAL HISTORY Smoking Status: Current every day smoker Drug Use: None - RESPIRATORY Hx Respiratory Disorders: Yes Hx COPD: Yes - CARDIOVASCULAR Hx Cardio Disorders: Yes Hx Heart Attack: No - NEURO Hx Neuro Disorders: No - GI Hx GI Disorders: No - Hx Genitourinary Disorders: No - ENDOCRINE Hx Endocrine Disorders: Yes Hx Diabetes: Yes - MUSCULOSKELETAL Hx Musculoskeletal Disorders: No - PSYCH Hx Psych Problems: No - HEMATOLOGY/ONCOLOGY Hx Hematology/Oncology Disorders: No Physical Exam - General General Appearance: Alert, Oriented x3, Cooperative, No acute distress Limitations: No limitations - Head Head exam: Atraumatic, Normal inspection - Eye Eye exam: Normal appearance, PERRL. negative: Conjunctival injection, Scleral icterus - ENT ENT exam: Normal exam, Mucous membranes moist Ear exam: Normal external inspection Nasal Exam: Discharge Mouth exam: Normal external inspection Teeth exam: Normal inspection Throat exam: Normal inspection - Neck Neck exam: Normal inspection, Full ROM. negative: Lymphadenopathy - Respiratory Respiratory exam: Chest wall tenderness, Decreased breath sounds, Prolonged expiratory, Rhonchi, Wheezes. negative: Normal lung sounds bilaterally, Accessory muscle use, Respiratory distress - Cardiovascular Cardiovascular Exam: Regular rate, Normal rhythm, Normal heart sounds Peripheral Pulses: 2+: Radial (R), Radial (L) - GI/Abdominal GI/Abdominal exam: Soft. negative: Tenderness - Rectal Rectal exam: Deferred - exam: Deferred - Extremities Extremities exam: Normal inspection. negative: Calf tenderness, Pedal edema, Tenderness - Back Back exam: Reports: Full ROM. Denies: CVA tenderness (R), CVA tenderness (L), Tenderness - Neurological Neurological exam: Alert, Normal gait, Oriented X3 - Psychiatric Psychiatric exam: Normal affect, Normal mood. negative: Agitated, Anxious - Skin Skin exam: Dry, Intact, Normal color, Warm Course Vital Signs 12/08/19 08:14 Temperature 98.8 F Pulse Rate 86 Respiratory 20 Rate Blood Pressure 153/87 Pulse Ox 96 - Reevaluation(s) Reevaluation #1: The vitals were reviewed No significant currant abnormality 12/08/19 08:24 EKG #1: 08:12 Rate: 73 Rhythm: sinus [place]: normal Intervals: normal ST segments: no acute changes, poor R wave progression Prior: No changes from 01/08/19 12/08/19 08:25 EMR was reviewed The patient had pneumonia 01/08/2019. CTA of the chest was performed at that time. 12/08/19 08:48 The labs results were reviewed There are no acute significant abnormalities of the CBC There are no acute significant abnormalities of the CMP The Troponin is normal after 2 weeks of pain that is very atypical for CAD or A CS. Serial enzymes not likely to be of benefit with days of symptoms, atypical symptoms consistent with URI. The influenza is negative 12/08/19 08:58 The CXR was reviewed by me. Hyperinflation noted otherwise no acute process. 12/08/19 09:18 The patient states she feels better after the [place]. She still has mild diffuse wheezing. She states she feels normal and declined a second treatment. 12/08/19 09:20 We discussed the results of the tests and questions were answered. The patient is doing well and is comfortable. I discussed with her the importance of her to get back in with a PCP at [facility]. She needs the typical health maintenance but also follow up of her COPD, long standing loss of appetite over the last several years, follow up her current tests and studies. We discussed at length reasons to immediately return to the ED as well as close follow up. The patient will call the clinic for close follow up of this ED visit to review this visit and the tests performed DC vitals were reviewed. The patient was given a copy of the radiology reports to review with their family doctor for follow up including the prior CT of the chest with one year follow up recommendation. This was verbal provided to the patient and a copy with the recommendation as well. 12/08/19 10:00 The patient is doing well with PO fluids. The plan is for a repeat troponin in about an hour Her nausea is gone. Her breathing is relaxed. 12/08/19 11:35 The repeat troponin is normal 12/08/19 11:48 Medical Decision Making - Lab Data Result diagrams: 12/08/19 08:25 12/08/19 08:25 Disposition Disposition: Discharge Clinical Impression: Bronchitis, COPD with exacerbation Diarrhea Qualifiers: Diarrhea type: unspecified type Qualified Code(s): R19.7 - Diarrhea, unspecified Disposition: Home, Self-Care Condition: (1) Good Instructions: COPD (Chronic Obstructive Pulmonary Disease) (ED), Acute Diarrhea (ED) Additional Instructions: Review this ER visit and the tests performed with your family doctor Call your doctor for the next available follow up appointment Return to the ER for a recheck immediately if worse, any new concerns or questions Take the prescriptions provided as directed Prescriptions: Albuterol Sulfate [Albuterol Sulfate Hfa] 8.5 gm IH Q4H PRN #1 hfa.aer.ad PRN Reason: Wheezing Prednisone [Prednisone 20Mg] 20 mg PO BID #10 tab Azithromycin [Zithromax] 250 mg PO DAILY #4 tablet Ondansetron [Zofran Odt] 4 mg PO Q8H #15 tab.rapdis Referrals: APRIL CUNHA [MEDICAL DOCTOR] - Forms: Patient Portal Access Time of Disposition: 11:35 Quality - Quality Measures Quality Measures: N/A - Blood Pressure Screening Does Patient Have Any of the Following: No Blood Pressure Classification: Normal BP Reading Systolic Measurement: 116 Diastolic Measurement: 72 Screening for High Blood Pressure: < Normal BP, F/U Not Required > [G8783] Pre-Hypertensive Follow-up Interventions: Referral to alternative/primary care provider.
[2019-12-08] MEDS ORDERED: METHYLPREDNISOLONE PF 125MG/VIAL IVP ONE (08:23)
[2019-12-08 08:28] LABS: ABSOLUTE NEUTROPHIL COUNT 2.99; BASO % 0.3 % (0-6); GRAN % 49.6 % (47-80); HEMATOCRIT 46.7 % (35.0-47.0); HEMOGLOBIN 15.4 gm/dl (11.6-16.0); LYMPH % 35.5 % (16-45); MEAN CELL VOLUME 89.6 fl (81-97); MEAN CORPUSCULAR HEMOGLOBIN 29.6 pg (27-33); MEAN PLATELET VOLUME 9.7 fl (7.4-10.4); MONO % 13.6 % (0-9); PLATELET COUNT 285 K/uL (130-400); RED BLOOD COUNT 5.21 M/uL (3.80-5.40); RED CELL DISTRIBUTION WIDTH 14.3 % (11.5-14.5)
[2019-12-08 08:38] LABS: BLOOD UREA NITROGEN 11 mg/dL (6-20); CREATININE 0.8 mg/dL (0.5-0.9); EST GLOMERULAR FILTRATION RATE > 60 mL/min
[2019-12-08 08:39] LABS: TOTAL PROTEIN 7.2 g/dL (6.6-8.7)
[2019-12-08 08:41] LABS: GLUCOSE,RANDOM 100 mg/dL (74-109)
[2019-12-08 08:43] LABS: INFLUENZA A NEGATIVE (NEGATIVE)
[2019-12-08 08:44] LABS: ALB/GLOB RATIO 1.5 (1.1-1.8); ALBUMIN 4.3 g/dL (4.0-5.0); ALKALINE PHOSPHATASE 63 U/L (35-104); ALT/SGPT 17 U/L (<33); AST/SGOT 20 U/L (10.0-35.0); INFLUENZA B NEGATIVE (NEGATIVE)
[2019-12-08] MEDS ORDERED: AZITHROMYCIN 500 MG TABLET PO ONE (08:50)
--- NOTE | 2019-12-08 09:06 | RADIOLOGY REPORT ---
EXAMINATION: Two View Chest Radiographs EXAM DATE: 12/08/2019 9:02 AM TECHNIQUE: Frontal and lateral views INDICATION: cough 2 weeks COMPARISON: None ENCOUNTER: Not applicable FINDINGS: The heart, mediastinum, and pulmonary vasculature are normal. There is hyperinflation of the lungs. N o lung consolidation or pleural effusions are present. IMPRESSION: No acute radiographic findings. Dictated by: Patricia Donnelly MD on 12/08/2019 9:04 AM. .
[2019-12-08] MEDS ORDERED: ALBUTEROL SULFATE (0.083%) 2.5 MG/3 ML NEB INH ONE (09:59)
== END 2019-12-08 11:49 | disposition home or self-care (01) ==
LOC: ER 08:09
DX: J44.0 Chronic obstructive pulmonary disease with (acute) lower respiratory infection (principal); J20.9 Acute bronchitis, unspecified; J44.1 Chronic obstructive pulmonary disease with (acute) exacerbation; R19.7 Diarrhea, unspecified; E11.9 Type 2 diabetes mellitus without complications; F17.210 Nicotine dependence, cigarettes, uncomplicated
CPT/HCPCS: 99284 ×2; 96365; 96375; 96361; 85025; 80053; 87400; 84484; 71046; 94640 ×2; 93005; J2405; 93010; J2930; J7030; J7613